=== PATIENT | female | born 1955 | race Caucasian/White ===

== ENCOUNTER 2018-02-27 12:30 | Outpatient (CLI) | payer BC ==
--- NOTE | 2018-02-28 08:51 | EKG ---
Test Reason : Blood Pressure : / mmHG Vent. Rate : 053 BPM Atrial Rate : 053 BPM P-R Int : 166 ms QRS Dur : 080 ms QT Int : 438 ms P-R-T Axes : 014 047 035 degrees QTc Int : 410 ms Sinus bradycardia Otherwise normal ECG When compared with ECG of 24-MAR-2016 08:52, No significant change was found Confirmed by DR. Marino MCADAMS ([id number]) on 02/28/2018 8:50:56 AM Referred By: ABHAY Confirmed By:DR. Marino MCADAMS
== END 2018-02-27 12:31 | disposition home or self-care (01) ==
LOC: LABBT 12:30
PROVIDERS: ATTEND Specialist
DX: Z01.818 Encounter for other preprocedural examination (principal); K40.90 Unilateral inguinal hernia, without obstruction or gangrene, not specified as recurrent
CPT/HCPCS: 93005; 93010

== ENCOUNTER 2018-03-02 05:51 | Day surgery (SDC) | payer BC ==
[2018-02-27 12:43] VITALS: BMI 30.9
[2018-03-02] MEDS ORDERED: Ketorolac Tromethamine 30 MG/ML VIAL ONE ×2 (06:21→15:10)
[2018-03-02] MEDS ORDERED: CEFAZOLIN 2 GM/50 ML BAG ONE (06:21)
[2018-03-02] MEDS ORDERED: Fentanyl 100 MCG/2 ML VIAL ONE ×3 (06:36→09:53)
[2018-03-02] MEDS ORDERED: Midazolam HCl 2 mg/2 ml Vial ONE (06:36)
[2018-03-02] MEDS ORDERED: Bupivacaine/Epinephrine 0.25% 30 ML VIAL ONE (06:56)
--- NOTE | 2018-03-02 10:24 | OP ---
DATE OF PROCEDURE: 03/02/2018 PREOPERATIVE DIAGNOSIS: Left inguinal hernia, calcified nodule within lower abdominal incision. POSTOPERATIVE DIAGNOSES: Left inguinal hernia, calcified nodule within lower abdominal incision with finding of a fat containing left indirect inguinal hernia and calcified area of fatty necrosis withi n the previous wound. OPERATION PERFORMED: Robotic assisted left inguinal hernia repair using large 3DMax mesh patch, exci dara of lower abdominal wall, 2 cm nodule. SURGEON: Stiven Vicente M.D. ANESTHESIA: General endotracheal. INDICATIONS: The patient is a 62-year-old white female well known to myself from prior surgery. She presented with an enlarging and symptomatic left inguinal hernia and is taken to the operating room at this time for repair. She also has a bothersome firm mobile nodule within the incision from her p rior abdominoplasty that she requests be excised. OPERATIVE PROCEDURE IN DETAIL: Informed consent was obtained, and patient was taken to the operating room where general anesthesia obtained with the patient in supine position. Bowen catheter was plac ed. The abdomen was prepped with ChloraPrep and draped in sterile fashion. Local anesthetic was inf iltrated several centimeters above her ernestine umbilicus. A 12 mm incision was created. Veress needle w as passed through this incision. The peritoneal cavity and pneumoperitoneum established using carbon dioxide to a pressure of 15 mmHg. A 12 mm trocar was passed through this same incision, and robotic camera assessed this port. Under direct vision, 2 additional 8 mm robotic ports were placed on eith er side of midline at the same level. There were adhesions in the right abdomen from prior hernia re pair and these had to be mobilized. These were fairly with be fatty adhesions. The mesh rib was ent irely intact and flushed against the abdominal wall. Attention was turned inferiorly. There were a few omental adhesions to the intra-abdominal wall. He re, there were also lysed sharply. At this point, I docked the robot to the ports and the camera and operation was continued from the console. There was a large firm indurated mass of fatty tissue bul ging from the anterior abdominal wall underlying the abdominoplasty. I suspect that this had somethi ng with her previous fundoplication in this area. The omentum was easily stripped down off of this, but this fatty mass was not addressed. There were some adhesions from the pericolonic fat up to the abdominal wall and these were mobilized as well. A transverse peritoneal incision was created several centimeters above the visible hernia. Dissectio n was carried out preperitoneal inferiorly. The iliopubic tract was mobilized and dissected laterall y. The pubic tubercle was dissected on the medial aspect. The peritoneum was dissected away from th e abdominal wall and all preperitoneal fatty tissue was dissected out of the hernia sac. There was n o intact round ligament traversing this area. The tissue was all easily mobilized. The epigastric v essels were identified and protected. A large 3DMax mesh patch was obtained and placed in the preperitoneal space and secured in place with 3 interrupted sutures of 2-0 Vicryl. One of these was placed in the pubic tubercle, 2 were placed t o the anterior abdominal wall on either side of the epigastric vessels. The hernia was relatively hi gh within the abdominal wall and efforts were made to ensure adequate coverage of the hernia defect w ith the mesh. The peritoneum was then closed using running suture of two of Stratafix. The herniated fatty tissue was incorporated within this closure to ensure that it did not slip under the mesh. The fascial defect at the umbilicus and the right upper quadrant incisions were each closed with 0 Vi cryl suture using a GraNee needle. A pneumoperitoneum was carefully evacuated. 0.25% Marcaine with epinephrine was infiltrated into each port site. Skin edges approximated with 4-0 Monocryl subcuticu lar suture. Dermabond was placed externally. Attention was turned inferiorly to the palpable nodule. Local anesthetic was infiltrated over this. A small ellipse of skin was excised. I was not certain if the mass was associated with the skin or not. It turns out that it was not. After the skin was removed, I carefully grasped and dissected th e calcified mass from the surrounding tissue. This was all above the level of the fascia. This was removed in a couple of pieces and submitted, per the patient's request to herself. There was nothing concerning with this. Hemostasis obtained with electrocautery. Wound was closed in layers with 3-0 and 4-0 Monocryl. Dermabond was placed externally. There were no complications with any part of th e procedure. She remained in stable condition and was taken to the recovery room in stable condition .
[2018-03-02] MEDS ORDERED: HYDROcodone/Acetaminophen 5/325 mg Tablet ONE (10:42)
[2018-03-02] MEDS ORDERED: diphenhydrAMINE 25 MG CAP ONE (10:44)
[2018-03-02] MEDS ORDERED: PROPOFOL 200 MG/20 ML VIAL ONE (15:10)
[2018-03-02] MEDS ORDERED: Glycopyrrolate 0.2 MG/ML 5 ML SYRINGE ONE (15:10)
[2018-03-02] MEDS ORDERED: Lidocaine 1% PF 5 ML VIAL ONE (15:10)
[2018-03-02] MEDS ORDERED: Vecuronium 10 MG VIAL ONE (15:10)
[2018-03-02] MEDS ORDERED: Ondansetron PF 4 MG/2 ML Vial ONE (15:10)
[2018-03-02] MEDS ORDERED: Succinylcholine Chloride 20 MG/ML 10 ml SYRINGE FS ONE (15:10)
[2018-03-02] MEDS ORDERED: Dexamethasone 20 MG/5 ML VIAL ONE (15:10)
== END 2018-03-02 11:55 | disposition home or self-care (01) ==
LOC: SDC 05:51
PROVIDERS: ATTEND Specialist
PROC: 0YU64JZ Supplement Left Inguinal Region with Synthetic Substitute, Percutaneous Endoscopic Approach (ICD-10-PCS; principal; 2018-03-02)
DX: K40.90 Unilateral inguinal hernia, without obstruction or gangrene, not specified as recurrent (principal); E66.9 Obesity, unspecified; Z79.899 Other long term (current) drug therapy
CPT/HCPCS: 96374; C1781; J0131; J1100; J1885; J2001; J2250; J2405; J2704; J3010

== ENCOUNTER 2018-08-22 06:10 | Day surgery (SDC) | payer BC ==
[2018-08-21 14:23] VITALS: BMI 31.1
[2018-08-22] MEDS ORDERED: Midazolam HCl 2 mg/2 ml Vial ONE ×2 (06:43→07:03)
[2018-08-22] MEDS ORDERED: Fentanyl 100 MCG/2 ML VIAL ONE ×2 (06:43)
[2018-08-22] MEDS ORDERED: Ketorolac Tromethamine 30 MG/ML VIAL ONE (06:45)
[2018-08-22] MEDS ORDERED: Iothalamate Meglumine 60% 50 ML VIAL FS ONE (06:46)
[2018-08-22] MEDS ORDERED: Bupivacaine/Epinephrine 0.25% 30 ML VIAL ONE (06:46)
[2018-08-22 07:00] LABS: #Eosinphils 0.1 thou/uL (0.0-0.7); #Monocytes 0.2 thou/uL (0.11-0.59); #Neutrophils 2.1 thou/uL (1.40-6.50); %Basophils 0.8 % (0.0-1.0); %Eosinophils 1.6 % (0.0-10.0); %Lymphocytes 29.7 % (21.0-51.0); %Monocytes 6.4 % (0.0-10.0); %Neutrophils 61.5 % (42.0-75.0); Hemoglobin 11.2 g/dL (12.0-16.0); Mean Corpuscular HGB CONC 33.6 g/dL (32.0-36.0); Mean Corpuscular Hemoglobin 30.6 pg (27.0-31.0); Mean Corpuscular Volume 91.1 fL (78.0-98.0); Mean Platelet Volume 8.6 fL (7.4-10.4); Platelet Count 159 thou/uL (130-400); RBC Distribution Width 12.9 % (11.5-14.5); Red Blood Cell (RBC) Count 3.67 mill/uL (4.20-5.40); White Blood Cell (WBC) Count 3.4 thou/uL (4.8-10.8)
[2018-08-22] MEDS ORDERED: Scopolamine 1.5 mg/72 hour Patch ONE (07:03)
[2018-08-22 07:23] LABS: ALT (SGPT) 14 U/L (8-55); AST (SGOT) 16 U/L (5-34); Albumin 3.4 g/dL (3.5-5.0); Alkaline Phosphatase 93 U/L (40-150); Anion Gap 10 mmol/L (10-20); BUN (Urea Nitrogen) 18 mg/dL (9.8-20.1); Bilirubin, Total 0.9 mg/dL (0.2-1.2); Calc. Creatinine Clearance 67 mL/min (70-130); Calcium 9.3 mg/dL (7.8-10.44); Carbon Dioxide 24 mmol/L (22-29); Chloride 109 mmol/L (98-107); Estimated GFR-MDRD 51; Globulin 2.9 g/dL (2.4-3.5); Glucose 92 mg/dL (70-105); Potassium 4.2 mmol/L (3.5-5.1); Protein, Total 6.3 g/dL (6.0-8.3); Sodium 139 mmol/L (136-145)
--- NOTE | 2018-08-22 15:27 | OP ---
DATE OF PROCEDURE: 08/22/2018 PREOPERATIVE DIAGNOSIS: Symptomatic cholelithiasis. POSTOPERATIVE DIAGNOSIS: Symptomatic cholelithiasis. OPERATION PERFORMED: Laparoscopic cholecystectomy. ANESTHESIA: General endotracheal. INDICATIONS: The patient is a 62-year-old white female. She presented with symptoms referable to gallbladder and ultrasound-proven cholelithiasis. She has taken to the operative room at this time for laparoscopic cholecystectomy. DESCRIPTION OF OPERATION: Informed consent was obtained. The patient taken to the operating room where general endotracheal anesthesia obtained with patient in supine position. Abdomen was prepped with ChloraPrep and draped in sterile fashion. Local anesthetic was infiltrated using 0.25% Marcaine with epinephrine. An 11 mm supraumbilical incision was created through prior laparoscopic port site. Dissection was carried through skin and subcutaneous tissue. Veress needle was passed into the peritoneal cavity and pneumoperitoneum was established using carbon dioxide up to pressure of 15 mmHg. An 11 mm trocar port was passed through the same incision. Laparoscopic camera was passed through this port. There was recognized to be adhesions between the omentum and the anterior abdominal wall in the right upper quadrant in the site of the prior hernia repair with mesh. I was able to place a 5 mm epigastric port under vision and through this utilized electrocautery to take the omentum down off the anterior abdominal wall. There was no bowel involvement. When the adhesions were entirely lysed, two additional 5 mm ports were placed in the usual fashion. Attention was turned to the gallbladder. This was grasped and retracted in a cephalad direction. Infundibulum was grasped retracted laterally and inferiorly. Careful dissection was carried to the apex of the gallbladder to identify the cystic duct and cystic artery. She had a sizable cystic artery noted that was retracted and left within the abdomen. The artery and duct were each divided between clips leaving 2 on the side to remain within the abdomen. The gallbladder was carefully dissected out of the gallbladder fossa and removed through the supraumbilical port site. The fascia was closed with 0 Vicryl suture using a GraNee needle. The right upper quadrant was thoroughly irrigated. All irrigant was aspirated. Meticulous hemostasis was ensured. The clips were all in appropriate location. There was no evidence of bile leak or bleeding. All ports and instruments were removed under direct vision. Pneumoperitoneum was carefully evacuated. Marcaine 0.25% with epinephrine was infiltrated at each port site. Skin edges approximated with 4-0 Monocryl subcuticular suture. Dermabond was placed externally. There were no complications. The patient tolerated the procedure well and was taken to recovery room in stable condition. Job ID: [id number]
[2018-08-22] MEDS ORDERED: Rocuronium Bromide 10 MG/ML (10ML VIAL) ONE (15:39)
[2018-08-22] MEDS ORDERED: PROPOFOL 200 MG/20 ML VIAL ONE (15:39)
[2018-08-22] MEDS ORDERED: Lidocaine 1% PF 5 ML VIAL ONE (15:39)
[2018-08-22] MEDS ORDERED: Glycopyrrolate 0.2 MG/ML 5 ML SYRINGE ONE (15:39)
[2018-08-22] MEDS ORDERED: Dexamethasone 20 MG/5 ML VIAL ONE (15:39)
[2018-08-22] MEDS ORDERED: Ondansetron PF 4 MG/2 ML Vial ONE (15:39)
== END 2018-08-22 10:38 | disposition home or self-care (01) ==
LOC: SDC 06:10
PROVIDERS: ATTEND Specialist
PROC: 0FT44ZZ Resection of Gallbladder, Percutaneous Endoscopic Approach (ICD-10-PCS; principal; 2018-08-22)
DX: K80.10 Calculus of gallbladder with chronic cholecystitis without obstruction (principal); M19.90 Unspecified osteoarthritis, unspecified site; E66.9 Obesity, unspecified; Z68.31 Body mass index [BMI] 31.0-31.9, adult; Z79.899 Other long term (current) drug therapy; Z88.2 Allergy status to sulfonamides; Z98.84 Bariatric surgery status; Z98.890 Other specified postprocedural states
CPT/HCPCS: 36415; 80053; 85025; 88304; 93005; 93010; J0131; J0690; J1100; J1885; J2001; J2250; J2405; J2704; J3010; Q9961